=== PATIENT | male | born 1950 | race Caucasian/White ===

== ENCOUNTER 2017-09-22 10:22 | Inpatient (IN) | payer MEDICARE, BC ==
[~2017-09-22 10:22] MED LIST: EPHEDrine SULFATE 50 MG/5 ML SYG
[2017-09-22] MEDS ORDERED: BUPIVACAINE 0.25% (MPF) 30 ML INJ (11:28)
[2017-09-22] MEDS ORDERED: HEPARIN 1000 UNITS/ML 10 ML INJ (11:29)
[2017-09-22] MEDS ORDERED: POLYMYXIN/BACITRACIN 1L IRRIG (11:29)
[2017-09-22 11:30] LABS: POTASSIUM 4.5 mmol/L (3.5-5.1)
[2017-09-22] MEDS ORDERED: ROCURONIUM 50 MG INJ ×2 (11:55→12:48)
[2017-09-22] MEDS ORDERED: ACETAMINOPHEN 1000MG/100ML IV 0 ML (11:55)
[2017-09-22] MEDS ORDERED: PROPOFOL 20 ML (11:55)
[2017-09-22] MEDS ORDERED: CEFAZOLIN 1 GM INJ (11:55)
[2017-09-22] MEDS ORDERED: FENTAnyl 50 MCG/ML VIAL (11:55)
[2017-09-22] MEDS ORDERED: ONDANSETRON 4 MG INJ (11:56)
[2017-09-22] MEDS ORDERED: METOCLOPRAMIDE 10 MG INJ (11:56)
[2017-09-22] MEDS ORDERED: MIDAZOLAM 1 MG/ML 2 ML INJ (11:56)
[2017-09-22] MEDS ORDERED: DIPHENHYDRAMINE 50 MG INJ IV (12:30)
[2017-09-22] MEDS ORDERED: CEPASTAT LOZENGE MT (12:30)
[2017-09-22] MEDS ORDERED: NALOXONE (0.4 MG/ML) INJ IV (12:30)
[2017-09-22] MEDS ORDERED: BISACODYL 10 MG SUPP PR (12:30)
[2017-09-22] MEDS ORDERED: ONDANSETRON 4 MG INJ IV (12:30)
[2017-09-22] MEDS: HEPARIN 1000 UNITS/ML 10 ML INJ (13:00)
[2017-09-22] MEDS ORDERED: HYDROmorphONE 1 MG/5 ML IV SYRINGE IV (13:00)
[2017-09-22] MEDS: CA CHLORIDE 10% 10 ML SYRINGE (13:06)
[2017-09-22] MEDS: THROMBIN 5000 UNIT VIAL (13:07)
[2017-09-22] MEDS: BUPIVACAINE 0.25%/EPI (MDV) 50 ML VIAL INJ (13:08)
[2017-09-22] MEDS: FENTAnyl 50 MCG/ML VIAL (13:42)
[2017-09-22] MEDS: SURGIFOAM POWDER 1 GM KIT (13:43)
[2017-09-22] MEDS ORDERED: NEOSTIGMINE 3 MG/3 ML SYRINGE (14:19)
[2017-09-22] MEDS ORDERED: GLYCOPYRROLATE 0.4 MG INJ (14:19)
[2017-09-22] MEDS: ONDANSETRON 4 MG INJ IV (14:38)
[2017-09-22] MEDS: HYDROmorphONE 1 MG/5 ML IV SYRINGE IV ×2 (14:38→14:47)
[2017-09-22] MEDS: HYDROmorphONE 0.2 MG/ML PCA IV (14:40)
[2017-09-22] MEDS: HYDROmorphONE 0.5 MG/0.5 ML SYG IV (18:07)
[2017-09-22] MEDS: CEFAZOLIN 1 GM/50 ML (PMX) 50 ML IVPB ×2 (19:45→20:36)
[2017-09-22] MEDS: DOCUSATE SODIUM 100 MG CAP PO (20:37)
[2017-09-22] MEDS: D5W-0.45 NACL + KCL 20 MEQ 1,000 ML IV ×2 (20:37→21:54)
[2017-09-22] MEDS: TAMSULOSIN (SR) 0.4 MG CAP PO (21:54)
[2017-09-23] MEDS: CEFAZOLIN 1 GM/50 ML (PMX) 50 ML IVPB (04:56)
[2017-09-23] MEDS: PANTOPRAZOLE 40 MG INJ IV (06:10)
[2017-09-23 06:18] LABS: ADD MAN DIFF? NO
[2017-09-23 06:26] LABS: WHITE BLOOD COUNT 8.5 10^3/ul (4.8-10.8)
[2017-09-23 06:26] LABS: BASOPHIL # 0.1 10^3/ul (0.0-0.1); BASOPHILS % 0.6 % (0.0-2.0); EOSINOPHILS # 0.1 10^3/ul (0.0-0.5); EOSINOPHILS % 0.8 % (0.0-7.0); HEMATOCRIT 36.8 % (42.0-52.0); HEMOGLOBIN 12.6 g/dl (14.0-18.0); LYMPHOCYTES # 1.2 10^3/ul (0.8-2.9); LYMPHOCYTES % 14.2 % (15.0-51.0); MEAN CORPUSCULAR HEMOGLOBIN 32.6 pg (29.0-33.0); MEAN CORPUSCULAR HGB CONC 34.2 g/dl (32.0-37.0); MEAN CORPUSCULAR VOLUME 95.1 fl (82.0-101.0); MONOCYTE # 0.9 10^3/ul (0.3-0.9); MONOCYTES % 10.2 % (0.0-11.0); NEUTROPHIL # 6.3 10^3/ul (1.6-7.5); PLATELET COUNT 154 10^3/UL (140-415); RED BLOOD COUNT 3.87 10^6/ul (4.70-6.10); RED CELL DISTRIBUTION WIDTH 12.8 % (11.5-14.5)
[2017-09-23 06:50] LABS: ANION GAP 10 (8-16); BLOOD UREA NITROGEN 7 mg/dl (7-20); CALCIUM 8.4 mg/dl (8.4-10.2); CARBON DIOXIDE 30 mmol/L (21-31); CHLORIDE 103 mmol/L (97-110); CREATININE 0.89 mg/dl (0.61-1.24); GLUCOSE 177 mg/dl (70-220); MAGNESIUM 1.6 mg/dl (1.7-2.5); POTASSIUM 4.3 mmol/L (3.5-5.1); SODIUM 139 mmol/L (135-144)
[2017-09-23] MEDS: D5W-0.45 NACL + KCL 20 MEQ 1,000 ML IV (07:19)
[2017-09-23] MEDS: DOCUSATE SODIUM 100 MG CAP PO ×2 (08:03→21:04)
[2017-09-23] MEDS: HYDROCODONE/APAP (10/325) TAB PO ×3 (09:31→17:39)
[2017-09-23] MEDS: MAGNESIUM SULFATE 2 GM/50 ML 50 ML IVPB (10:31)
[2017-09-23] MEDS: TAMSULOSIN (SR) 0.4 MG CAP PO (21:04)
[2017-09-23] MEDS: ACETAMINOPHEN 325 MG TAB PO (21:34)
[2017-09-23] MEDS: DIPHENHYDRAMINE 25 MG CAP PO (21:34)
[2017-09-24] MEDS: CYCLOBENZAPRINE 10 MG TAB PO (00:07)
[2017-09-24] MEDS: HYDROCODONE/APAP (10/325) TAB PO ×3 (04:50→23:00)
[2017-09-24 05:25] LABS: ADD MAN DIFF? NO
[2017-09-24] MEDS: PANTOPRAZOLE 40 MG INJ IV (05:40)
[2017-09-24 05:43] LABS: BASOPHIL # 0.1 10^3/ul (0.0-0.1); BASOPHILS % 0.6 % (0.0-2.0); EOSINOPHILS # 0.2 10^3/ul (0.0-0.5); EOSINOPHILS % 2.3 % (0.0-7.0); HEMATOCRIT 38.2 % (42.0-52.0); LYMPHOCYTES # 1.8 10^3/ul (0.8-2.9); LYMPHOCYTES % 17.6 % (15.0-51.0); MEAN CORPUSCULAR HEMOGLOBIN 32.3 pg (29.0-33.0); MEAN PLATELET VOLUME 9.7 fl (7.4-10.4); MONOCYTE # 1.2 10^3/ul (0.3-0.9); MONOCYTES % 11.7 % (0.0-11.0); NEUTROPHIL # 6.9 10^3/ul (1.6-7.5); NEUTROPHILS % 67.4 % (39.0-77.0); PLATELET COUNT 164 10^3/UL (140-415); RED BLOOD COUNT 4.02 10^6/ul (4.70-6.10); RED CELL DISTRIBUTION WIDTH 12.5 % (11.5-14.5)
[2017-09-24 05:43] LABS: WHITE BLOOD COUNT 10.2 10^3/ul (4.8-10.8)
[2017-09-24 05:59] LABS: ANION GAP 10 (8-16); BLOOD UREA NITROGEN 5 mg/dl (7-20); CALCIUM 8.7 mg/dl (8.4-10.2); CARBON DIOXIDE 30 mmol/L (21-31); CHLORIDE 103 mmol/L (97-110); CREATININE 0.98 mg/dl (0.61-1.24); GLUCOSE 126 mg/dl (70-220); MAGNESIUM 1.8 mg/dl (1.7-2.5); PHOSPHORUS 3.6 mg/dl (2.5-4.9); SODIUM 139 mmol/L (135-144)
[2017-09-24] MEDS ORDERED: DEXTROSE 50% 50 ML SYRINGE IV ×2 (06:30)
[2017-09-24] MEDS ORDERED: GLUCOSE GEL 15 GRAM TUBE PO ×2 (06:30)
[2017-09-24] MEDS ORDERED: GLUCAGON 1 MG INJ IM (06:30)
[2017-09-24] MEDS ORDERED: GLUCOSE GEL 15 GRAM TUBE BUCCAL (06:30)
[2017-09-24] MEDS: DOCUSATE SODIUM 100 MG CAP PO ×2 (09:11→20:13)
[2017-09-24] MEDS: metFORMIN 500 MG TAB PO ×2 (09:11→18:13)
[2017-09-24] MEDS: TAMSULOSIN (SR) 0.4 MG CAP PO (20:13)
[2017-09-24] MEDS: ATORVASTATIN 20 MG TAB PO (20:13)
[2017-09-25] MEDS: AL HYDROX/MG HYDROX/SIMETH 30 ML CUP PO ×2 (00:58→05:39)
[2017-09-25] MEDS: PANTOPRAZOLE 40 MG INJ IV (05:35)
[2017-09-25] MEDS: INSULIN ASPART [NOVOLOG] 3 ML PEN SC ×2 (07:50→11:40)
[2017-09-25] MEDS: DOCUSATE SODIUM 100 MG CAP PO (09:57)
[2017-09-25] MEDS: metFORMIN 500 MG TAB PO (09:57)
[2017-09-26] MEDS ORDERED: ACCU-CHEK XX (02:00)
== END 2017-09-25 17:44 | disposition home or self-care (01) | DRG 518 ==
LOC: REC 10:22 → MS1 19:45
PROVIDERS: Specialist
PROC: 0SH00BZ Insertion of Interspinous Process Spinal Stabilization Device into Lumbar Vertebral Joint, Open Approach (ICD-10-PCS; principal; 2017-09-22 12:00)
PROC: 01NB0ZZ Release Lumbar Nerve, Open Approach (ICD-10-PCS; 2017-09-22 12:00)
DX: M48.062 Spinal stenosis, lumbar region with neurogenic claudication (principal); M43.16 Spondylolisthesis, lumbar region; M51.16 Intervertebral disc disorders with radiculopathy, lumbar region; N40.1 Benign prostatic hyperplasia with lower urinary tract symptoms; R33.8 Other retention of urine; I10 Essential (primary) hypertension; D64.9 Anemia, unspecified; E83.42 Hypomagnesemia; Z85.118 Personal history of other malignant neoplasm of bronchus and lung
CPT/HCPCS: 72100; 80048; 82962; 83735; 84100; 84132; 85025; 86850; 86900; 86901; 86999; 88304; 88311; 97110; 97116; 97161; 97530